=== PATIENT | male | born 1960 | race Caucasian/White ===

== ENCOUNTER 2017-05-05 21:12 | Emergency (ER) | payer SELFPAY ==
[~2017-05-05] VITALS: Ht 165.1 cm; Wt 84.1 kg
[2017-05-05 21:18] VITALS: Ht 165.1 cm; Wt 84.1 kg
[2017-05-05] MEDS ORDERED: SOD CHLORIDE 0.9% 1,000 ML IV STA (21:54)
--- NOTE | 2017-05-05 22:43 | ERD ---
ER Documentation Chief Complaint Date/Time DATE: 05/05/17 TIME: 22:42 Chief Complaint ETOH found in [facility] bathroom sleeping, pt east timore[place] speaking HPI This is a 57-year-old male who is found at [facility] intoxicated. He was sleeping in a lee. Patient says he drank a lot of beer today but does not have any physical complaints. He is denying any fall headache nausea vomiting diarrhea. ROS All systems reviewed and are negative except as per history of present illness. PMhx/Soc Medical and Surgical Hx: pt denies Medical Hx, pt denies Surgical Hx Hx Alcohol Use: Yes (5 beer few hours ago) Hx Substance Use: No Hx Tobacco Use: No Smoking Status: Never smoker FmHx Family History: No coronary disease Physical Exam Vitals Vital Signs Date Time Temp Pulse Resp B/P Pulse Ox O2 Delivery O2 Flow Rate FiO2 05/05/17 21:18 98.0 81 21 131/90 94 Physical Exam Const: Well-developed, well-nourished Head: Atraumatic, normocephalic Eyes: Normal Conjunctiva, PERRLA, EOMI, normal sclera, no nystagmus ENT: Normal External Ears, Nose and Mouth, moist mucus membranes. Neck: Full range of motion. No meningismus, no lymphadenopathy. Resp: Clear to auscultation bilaterally, no wheezing, rhonchi, rales Cardio: Regular rate and rhythm, no murmurs, S1 S2 present Abd: Soft, non tender x 4, non distended. Normal bowel sounds, no guarding or rebound, no pulsitile abdominal masses or bruits Skin: No petechiae or rashes, no ecchymosis , no maculopapular rash Back: No midline or flank tenderness Ext: No cyanosis, or edema, FROM x 4, normal inspection, neurovascularly intact x 4 Neur: Awake and alert, STR 5/5 x 4, sensation intact x 4, no focal findings, cerebellum intact Psych: Normal Mood and Affect, sleepy but arousable and answers questions appropriately Results 24 hrs Laboratory Tests Test 05/05/17 22:05 Ethyl Alcohol Level 331.0mg/dl Current Medications Medications (Trade) Dose Ordered Sig/Soraida Route PRN Reason Start Time Stop Time Status Last Admin Dose Admin Sodium Chloride (NS) 1,000 ml @ 1,000 mls/hr Q1H STAT IV 05/05/17 21:54 05/05/17 22:53 DC 05/05/17 22:04 Procedures/MDM PROCEDURE: CT head, without contrast. CLINICAL INDICATION: Medical clearance. TECHNIQUE: Noncontrast CT examination of the head, with axial, sagittal and coronal reformatted images. Automated dose exposure control was employed. CTDI: 45.01 and DLP: 720.23. COMPARISON: None. FINDINGS: No acute hemorrhage. Subarachnoid spaces are substantially preserved and symmetric. Ventricles are unremarkable. No mass effect. Guillen-white matter distinction is preserved without evident decreased attenuation to suggest acute or recent infarct. Sinuses and osseous structures are unremarkable. IMPRESSION: No acute process in the head. RPTAT: [facility] Physician Al Date Time Electronically viewed and signed by Physician Al on 05/05/2017 23:54 RS/ CC: FARZANA MASSEY DO Patient's alcohol level is 331. He is intoxicated. The patient will be allowed to sleep in the ER until his level comes down he is awake alert oriented and ambulatory and stable for discharge. Departure Diagnosis: Primary Impression: Alcoholic intoxication Complication of substance-induced condition: uncomplicated Qualified Code: F10.120 - Alcoholic intoxication, uncomplicated Condition: Stable FARZANA MASSEY DO May 05, 2017 22:43
--- NOTE | 2017-05-05 23:54 | RADRPT ---
PROCEDURE: CT head, without contrast. CLINICAL INDICATION: Medical clearance. TECHNIQUE: Noncontrast CT examination of the head, with axial, sagittal and coronal reformatted im ages. Automated dose exposure control was employed. CTDI: 45.01 and DLP: 720.23. COMPARISON: None. FINDINGS: No acute hemorrhage. Subarachnoid spaces are substantially preserved and symmetric. Ventricles ar e unremarkable. No mass effect. Guillen-white matter distinction is preserved without evident decreased attenuation t o suggest acute or recent infarct. Sinuses and osseous structures are unremarkable. IMPRESSION: No acute process in the head. RPTAT: [facility]U Physician Al Date Time Electronically viewed and signed by Physician Al on 05/05/2017 23:54 RS/
[2017-05-06 04:24] VITALS: BP 115/59; PULSE 70; RESP 18; TEMP 98.5
== END 2017-05-06 08:49 | disposition home or self-care (01) ==
LOC: E/R 21:12
DX: F10.120 Alcohol abuse with intoxication, uncomplicated (principal); R40.2242 Coma scale, best verbal response, confused conversation, at arrival to emergency department; R40.2142 Coma scale, eyes open, spontaneous, at arrival to emergency department; R40.2362 Coma scale, best motor response, obeys commands, at arrival to emergency department; R93.0 Abnormal findings on diagnostic imaging of skull and head, not elsewhere classified
CPT/HCPCS: 36415; 70450; 80306; 99285; J7030